=== PATIENT | male | born 1985 | race Two or more races ===

== ENCOUNTER 2019-03-29 04:08 | Emergency (ER) | payer OTHER ==
[~2019-03-29] VITALS: Ht 180.3 cm; Wt 86.2 kg
== END 2019-03-29 10:41 | disposition home or self-care (01) ==
LOC: ER 04:08
DX: K29.60 Other gastritis without bleeding (principal)

== ENCOUNTER 2020-04-23 08:06 | Emergency (ER) | payer OTHER ==
[~2020-04-23] VITALS: Ht 175.3 cm; Wt 83.9 kg
== END 2020-04-23 12:22 | disposition home or self-care (01) ==
LOC: ER 08:06
DX: R10.11 Right upper quadrant pain (principal); R10.31 Right lower quadrant pain

== ENCOUNTER 2020-04-29 09:19 | Outpatient (CLI) | payer OTHER | END 2020-04-29 09:50 | disposition home or self-care (01) | LOC: NUCLEAR 09:19 | PROVIDERS: ATTEND Emergency Medicine | DX: K80.20 Calculus of gallbladder without cholecystitis without obstruction (principal) | CPT/HCPCS: 78226; A9537 ==